=== PATIENT | male | born 1985 | race Hispanic/Latino ===

== ENCOUNTER 2017-12-14 19:54 | Emergency (ER) | payer SELFPAY ==
[2017-12-14] MEDS ORDERED: Adacel (T-DAP) 0.5 ML VIAL ONE (20:35)
--- NOTE | 2017-12-14 20:55 | RAD ---
THREE VIEWS LEFT FOOT: 12/14/17 HISTORY: Stepped on a nail. Puncture wound to left foot. FINDINGS: There is no evidence of a fracture, dislocation, or other osseous abnormality involving the left foot . No radiopaque foreign body is seen. IMPRESSION: 1. No acute osseous abnormality left foot. 2. No radiopaque foreign body seen. POS: [facility]
== END 2017-12-14 21:34 | disposition home or self-care (01) ==
LOC: ERS 19:54
DX: S91.332A Puncture wound without foreign body, left foot, initial encounter (principal); W22.8XXA Striking against or struck by other objects, initial encounter
CPT/HCPCS: 90471; 90715